=== PATIENT | female | born 1955 | race Caucasian/White ===

== ENCOUNTER → 2017-12-13 11:41 | Outpatient (CLI) | payer OTHER, MEDICAID, SELFPAY ==
--- NOTE | 2017-12-13 11:42 | DI.US.S_ITS ---
PROCEDURE: US ABDOMEN COMPLETE INDICATIONS: ELEVATED LIVER ENZYMES TECHNIQUE: Real-time scanning was performed of the abdominal and retroperitoneal organs, with image documentation. COMPARISON: None. FINDINGS: Liver: Liver is normal in size and homogeneous in echotexture, mildly hyperechoic consistent with mild fatty infiltration. Gallbladder: Multiple dependent layering stones are present within the gallbladder lumen without evidence of acute cholecystitis or biliary obstruction. Biliary ducts: Intrahepatic bile ducts are non-dilated. Extrahepatic bile duct caliber measures 2.0 mm. Normal is 6-7 mm or less in diameter, or 10 mm or less post-cholecystectomy. Pancreas: Visualized portions of the pancreas are sonographically normal but significant portions of the pancreas were poorly seen due to bowel gas. Spleen: Spleen is normal in size and homogeneous in echotexture. Kidneys: Kidneys are normal in size and echotexture. Right kidney measures 10.9 cm long; left kidney measures 11.4 cm long. No hydronephrosis or nephrolithiasis. No solid masses. Aorta: Visualized aorta is normal in caliber at less than 3 cm. Iliacs: Not seen due to bowel gas IVC: Intrahepatic inferior vena cava is patent. Miscellaneous: No free abdominal fluid. IMPRESSION: Mild fatty infiltration throughout the liver. Dependent layering gallstones are present within the gallbladder lumen but without evidence of associated acute cholecystitis or biliary distention. Portions of the retroperitoneum were poorly seen due to overlying bowel gas. This included a significant portion of the pancreas, the distal aorta, and the iliac vessels within the pelvis. No ascites is found. Dictated by: Reagan Dumont M.D. on 12/13/2017 at 13:36 Approved by: Reagan Dumont M.D. on 12/13/2017 at 13:38
[2017-12-13 13:27] LABS: Add Manual Diff / Slide Review NO; Basophils Percent Auto 0.5 % (0-2); Eosinophils Percent Auto 4.5 % (2-4); Hemoglobin 13.7 g/dL (12.0-16.0); Lymphocytes Percent Auto 35.5 % (25-40); Mean Corpuscular HGB Conc 33.4 % (30-36); Mean Corpuscular Hemoglobin 30.9 PG (26-34); Mean Corpuscular Volume 92.5 fL (80-100); Monocytes Percent Auto 5.1 % (3-14); Neutrophils Absolute Auto 5500 /uL (3000-5900); Neutrophils Percent Auto 54.4 % (50-75); Platelet Count 215 X10^3/uL (150-400); Red Blood Cell Count 4.43 X10^6/uL (4.0-5.2); Red Cell Distribution Width 12.4 % (11.6-14.8); White Blood Cell Count 10.1 X10^3/uL (4.5-11.0)
[2017-12-13 13:35] LABS: Hemoglobin A1C% w Est Avg Glu 11.2 % (4.0-6.0)
[2017-12-13 14:00] LABS: Alanine Aminotransferase 79 IU/L (9-52); Albumin 4.2 g/dL (3.5-5.0); Albumin Globulin Ratio 1.2 (1.0-2.8); Alkaline Phosphatase 169 U/L (38-126); Aspartate Aminotransferase 59 IU/L (14-36); Blood Urea Nitrogen 19 mg/dL (7-17); Calcium 9.1 mg/dL (8.4-10.2); Carbon Dioxide 36 mmol/L (22-32); Chloride 98 mmol/L (98-107); Cholesterol 147 mg/dL (140-199); Estimated Glomerular Filt Rate > 60.0 mL/min (>60); Globulin 3.4 g/dL (1.7-4.1); Glucose 218 mg/dL (80-110); HDL Cholesterol 77 mg/dL (40-60); HEMOLYSIS < 15 (0-50); LDL Cholesterol Calculated 53 mg/dL (<100); Potassium 4.1 mmol/L (3.4-5.1); Sodium 140 mmol/L (137-145); Total Protein 7.6 g/dL (6.3-8.2); Triglycerides 86 mg/dL (35-150)
[2017-12-13 19:33] LABS: TSH w/ Reflex to FT4 3.38 uIU/mL (0.47-4.68)
[2017-12-15 16:05] LABS: Hepatitis A Antibody IgM NONREACTIVE; Hepatitis Acute Panel Interp 0.01; Hepatitis B Core Antibody IgM NONREACTIVE; Hepatitis B Surface Antigen NONREACTIVE; Hepatitis C Antibody NONREACTIVE
== END ==
PROVIDERS: PCP Family Medicine; Visit Provider Family Medicine
DX: R74.8 Abnormal levels of other serum enzymes (principal); R74.0 Nonspecific elevation of levels of transaminase and lactic acid dehydrogenase [LDH]; K80.80 Other cholelithiasis without obstruction; E11.9 Type 2 diabetes mellitus without complications; F10.21 Alcohol dependence, in remission; Z79.4 Long term (current) use of insulin
CPT/HCPCS: 36415; 76700; 80053; 80061; 80074; 83036; 84443; 85025

== ENCOUNTER → 2018-03-16 11:00 | Outpatient (CLI) | payer OTHER, MEDICAID, SELFPAY ==
--- NOTE | 2018-03-16 15:10 | DIET.PN ---
DIABETES Nutrition Initial Assessment:? ASSESS:???62 yof? referred for type 2 diabetes. Pt reports 5 yr history of diagnosis with strong family history. States she was in denial of diagnosis for several years until she began experiencing the complications associated with the disease including neuropathy, vision changes, extreme thirst and fatigue. Pt admits she does not take care of herself. Does not follow any dietary guidelines or restrictions. She has a glucometer but does not monitor her blood glucose. Pt is on diabetes medication but does not take them as prescribed often going without insulin for several days. Upon assessment she began to tear up describing an overwhelming feeling with coming in today and admits she almost stayed home in bed. Pt provided some dietary history, but explained she likes to drink alcohol and does not plan to discontinue. Usually consumes four lokos her brings home to her after work. Pt with poor dentition. States she had an upper denture that she believes her dog chewed up which makes chewing very difficult and limits many food, particularly protein, options. ? LABS: Per pt report:? a1c: 11.2 (does not currently monitor home blood glucose PMHX: fatty liver disease; alcoholism ? MEDS:?? metformin 1000mg BID (only takes at night with other meds) ; lantus 70u BID (only takes when her feet start to hurt) ? Weight: 185lb Ht:?67in BMI: 29 (OW) Goal weight: 150 lb ? Exercise:? none NUTRITION DX ? (1) Altered Nutrition related labs related to impaired glucose metabolism, lack of previous exposure to accurate nutrition information as evidenced by pt report, dx of diabetes, previous diet high in refined carbohydrates.? INTERVENTION(s): 1. Discussed pathophysiology of diabetes. Reviewed A1c and its correlation to blood glucose numbers. Discussed recommended BG ranges. 2. Discussed importance of self-monitoring, how often, and when to check. Recommended pt check FBG and 2hr PP to assess glucose patterns. 3. Reviewed hyper/hypoglycemia and treatment. 4. Discussed impact of nutrition/diet on blood sugar control.? Discussed fed versus non-fed state.?? 5. Discussed the effect of carbohydrates/protein/fat on blood sugar control.? Stressed importance of consistent carbohydrate intake at each meal and provided instructions for recommended servings/portions of carbohydrates/protein per meal. Provided pt with educational material. 6. Reviewed carbohydrate counting and measuring carbohydrate content via servings sizes and reading nutrition labels.? Provided handouts.?? 7. Stressed importance of meal timing and not going >4-5 hours between meals. Encouraged adding protein to evening snack to support glucose control overnight. Patient agreeable. 8. Discussed healthy weight loss goals of 1-2lbs per week through diet and exercise.? Will further discuss physical activity recommendations at follow up appt. 9. Discussed in great detail importance of limiting or cutting out alcohol to reduce further liver complications. 9. Created SMART goals for pt self-care and success. SMART Goals: 1. Pt agreed to 5-7 lb weight loss each month until goal weight is met through diet and exercise. 2. Pt A1c goal in the next 3 mo is 9.5 with an overall goal of 8.0. 3. Pt will cut out four lokos completely as these are very high in sugar (60g), up to 14% alcohol, and contain 160mg of caffeine. Discussed safer options including 1- 4oz glass of wine or 1.5oz hard liquor beverage as a replacement which much be consumed with food. Pt agreeable. 4. Pt with monitor FBG and 2 hr PP at each meal until pattern management is accomplished. Will move to 2x/day thereafter. 5. Pt agrees to take medications as prescribed to obtain better glucose control. She will do this by setting an alarm/reminder to ensure meds are taken on time. MONITOR/EVALUATE: Anticipate good compliance. Pt request first follow up at 2 weeks and monthly thereafter for accountability until goals are met. Nutrition follow-up scheduled for 2 weeks to monitor food record, blood glucose log, weight, and to discuss other nutritional concerns in detail. Will follow up with authorized referral visits at this time.
== END ==
PROVIDERS: PCP Family Medicine; Visit Provider Family Medicine
DX: E11.9 Type 2 diabetes mellitus without complications (principal)
CPT/HCPCS: 97802

== ENCOUNTER 2018-07-09 15:51 | Emergency (ER) | payer OTHER, MEDICAID, SELFPAY ==
[2018-07-09 16:20] VITALS: BP 145/85; PULSE 93; RESP 18; TEMP 36.9; O2SAT 96; BMI 29.7
--- NOTE | 2018-07-09 16:56 | DI.US.S_ITS ---
PROCEDURE: US PERIPH VENOUS LOW EXTREM RT INDICATIONS: EDEMA TECHNIQUE: Real-time imaging, as well as color and pulse Doppler interrogation, were performed of the lower extremity deep veins from the inguinal ligament to the popliteal fossa. COMPARISON: [facility], US, US ABDOMEN COMPLETE, 12/13/2017, 12:07. FINDINGS: The common femoral, femoral and popliteal veins are normally compressible, and free of intraluminal thrombus. Color and pulse Doppler demonstrate normal phasic intraluminal flow. There is normal augmentation response to distal compression maneuver. IMPRESSION: Negative for deep venous thrombosis. Dictated by: Trino Seals M.D. on 07/09/2018 at 16:30 Approved by: Trino Seals M.D. on 07/09/2018 at 16:31
[2018-07-09] MEDS: KETOROLAC 60 MG/2 ML VIAL IM (17:51)
[2018-07-09 18:21] VITALS: BP 156/90; PULSE 88; RESP 17; O2SAT 98
--- NOTE | 2018-07-09 18:29 | ED.EXTPRO ---
HPI - Extremity Problem <RODRICK Hines - Last Filed: 07/09/18 18:33> General Chief complaint: Extremity Problem,Nontraumatic Stated complaint: Right leg, states vein has popped Time Seen by Provider: 07/09/18 17:20 Source: patient Mode of arrival: ambulatory Limitations: no limitations History of Present Illness HPI Narrative: The patient is a 62-year-old female with history of diabetes was a nonsmoker presents with chief complaint of right leg pain. She is concerned about a blood clot. She noticed this a few days ago. She denies any chest pain, shortness of breath fevers nausea vomiting or diarrhea. She does have a history of high blood pressure and hypertension, so she is aware she has increased risk factors launch. She denies any previous clotting disorders stroke or TIA. Related Data Home Medications Medication Instructions Recorded Confirmed aspirin #0 02/03/16 01/17/18 Previous Rx's Medication Instructions Recorded triamcinolone acetonide 1 sherwin TOPICAL BID #1 tube 10/06/16 gabapentin 100 mg capsule 100 mg PO TID #90 cap 07/12/17 atorvastatin 20 mg tablet 20 mg PO HS #90 tab 01/03/18 fluoxetine 20 mg capsule 80 mg PO QDAY #120 cap 01/03/18 lisinopril 20 mg tablet 20 mg PO QDAY #90 tab 01/03/18 metformin 1,000 mg tablet 1,000 mg PO BID #60 tab 01/03/18 insulin glargine (U-100) 100 70 unit SUBCUT DAILY #30 ml 03/22/18 unit/mL (3 mL) subcutaneous pen pen needle, diabetic 31 gauge x #90 each 05/18/1805/14 Allergies Allergy/AdvReac Type Severity Reaction Status Date / Time No Known Drug Allergies Allergy Verified 07/09/18 16:19 Review of Systems <RODRICK Hines - Last Filed: 07/09/18 18:33> Review of Systems GENERAL: Denies chills, fatigue, malaise, fever, sweats. HEENT: Denies sinus pain, ear pain, sore throat, difficulty swallowing, dizziness. RESPIRATORY: Denies dyspnea, cough, wheezing, hemoptysis, sputum. CARDIOVASCULAR: Denies chest pain, palpitations, orthopnea, edema, GASTROINTESTINAL: Denies nausea, vomiting, abdominal pain, diarrhea, constipation, melena. : Denies dysuria, frequency, incontinence, hematuria, urinary retention. MUSCULOSKELETAL: See HPI SKIN: Denies rash, skin lesions, or other NEUROLOGIC: Denies weakness, headache, numbness, change in speech, confusion, seizures, incoordination. PSYCHIATRIC: No concerning psychosocial issues. 12 point review of systems is negative except for those stated above PFSH <RODRICK Hines - Last Filed: 07/09/18 18:33> Medical History Arm pain (Chronic) Depression (Chronic ~2004) Diabetes mellitus (Chronic ~2012) Eczema (Chronic ~2013) Foot pain (Chronic ~2013) Glaucoma (Chronic ~2012) Gout (Chronic ~1987) Kidney disease (Chronic ~2013) Liver disease (Chronic ~2013) Shoulder pain (Chronic ~2015) Skin problem (Chronic ~2013) Vision disorder (Chronic) Family History (Updated 01/01/18 @ 21:25 by Mony Szymanski) Father Cancer Mother Age: 88 Hypertension High cholesterol Diabetes mellitus Grandfather No problems noted. Social History Smoking Status: Never smoker Family History Father Cancer Mother Age: 88 Hypertension High cholesterol Diabetes mellitus Grandfather No problems noted. Social History Smoking Status: Never smoker Exam <RODRICK Hines - Last Filed: 07/09/18 18:33> Narrative Exam Narrative: GENERAL: This is a well-nourished, well-developed patient, in no acute distress HEAD: Atraumatic. Normocephalic. No temporal or scalp tenderness. EYES: Pupils equal round and reactive. Extraocular motions intact. No scleral icterus. No injection or drainage. NECK: Trachea midline. No JVD or lymphadenopathy. Supple, nontender, no meningeal signs. CARDIOVASCULAR: Regular rate and rhythm. RESPIRATORY: Clear to auscultation. Breath sounds equal bilaterally. No wheezes, rales, or rhonchi. No cough. No increased respiratory effort. GASTROINTESTINAL: Abdomen soft, non-tender, nondistended. No hepato-splenomegaly, or palpable masses. No guarding. EXTREMITIES: General pain to palpation right lower leg. Soft to palpation. Positive pedal pulses. No pedal edema noted bilaterally. BACK: Nontender without deformity or crepitance. No flank tenderness. NEURO: AOx3. SKIN: No erythema ecchymosis abnormality noted right leg.. Initial Vital Signs Initial Vital Signs: Vital Signs Temperature 98.4 F 07/09/18 16:20 Pulse Rate 93 H 07/09/18 16:20 Respiratory Rate 18 07/09/18 16:20 Blood Pressure 145/85 H 07/09/18 16:20 Pulse Oximetry 96 07/09/18 16:20 <Magaly Doe DO - Last Filed: 07/09/18 19:11> Initial Vital Signs Initial Vital Signs: Vital Signs Temperature 98.4 F 07/09/18 16:20 Pulse Rate 93 H 07/09/18 16:20 Respiratory Rate 18 07/09/18 16:20 Blood Pressure 145/85 H 07/09/18 16:20 Pulse Oximetry 96 07/09/18 16:20 Course <RODRICK Hines - Last Filed: 07/09/18 18:33> Orders Ordered: ED Orders 07/09/18 16:56 US periph venous low extrem rt Stat Discontinued Medications Ketorolac Tromethamine (Toradol) 60 mg IM NOW ONE Stop: 07/09/18 17:24 Last Admin: 07/09/18 17:51 Dose: 60 mg Vital Signs - 8 hr 07/09/18 16:20 07/09/18 18:21 Temperature 98.4 F Pulse Rate 93 H 88 Respiratory Rate 18 17 Blood Pressure 145/85 H Blood Pressure [Left Arm] 156/90 H Pulse Oximetry 96 98 <Magaly Doe DO - Last Filed: 07/09/18 19:11> Orders Ordered: ED Orders 07/09/18 16:56 US periph venous low extrem rt Stat Discontinued Medications Ketorolac Tromethamine (Toradol) 60 mg IM NOW ONE Stop: 07/09/18 17:24 Last Admin: 07/09/18 17:51 Dose: 60 mg Vital Signs - 8 hr 07/09/18 16:20 07/09/18 18:21 Temperature 98.4 F Pulse Rate 93 H 88 Respiratory Rate 18 17 Blood Pressure 145/85 H Blood Pressure [Left Arm] 156/90 H Pulse Oximetry 96 98 [facility] - Extremity (Nontraumatic) <Magaly Montaño [employer] - Last Filed: 07/09/18 18:33> Imaging Data Venous US: Radiologist's impression: GENERAL: This is a well-nourished, well-developed patient, in mild distress. HEAD: Atraumatic. Normocephalic. No temporal or scalp tenderness. EYES: Pupils equal round and reactive. Extraocular motions intact. No scleral icterus. No injection or drainage. ENT: Nose without bleeding, purulent drainage or septal hematoma. Throat without erythema, tonsillar hypertrophy or exudate. Uvula midline. Airway patent. NECK: Trachea midline. No JVD or lymphadenopathy. Supple, nontender, no meningeal signs. CARDIOVASCULAR: Regular rate and rhythm without murmurs, gallops, or rubs. RESPIRATORY: Clear to auscultation. Breath sounds equal bilaterally. No wheezes, rales, or rhonchi. GASTROINTESTINAL: Abdomen soft, non-tender, nondistended. No hepato-splenomegaly, or palpable masses. No guarding. EXTREMITIES: No clubbing, cyanosis, or edema. No joint tenderness, effusion, or edema noted. BACK: Nontender without deformity or crepitance. No flank tenderness. NEURO: AOx3. SKIN: No rash or erythema. [facility] Narrative Medical decision making narrative: The patient is a 62-year-old female presents with acute right leg pain. She is concerned about a blood clot. She has a negative ultrasound for DVT. She was given Toradol emergency department. I discussed at length conservative measures including rest ice compression elevation as well as [id number] pain medications as needed and able. Discussed not taking any anti-inflammatories for 6-8 hours after Toradol injection. Patient has no questions or concerns upon discharge. Discussed return precautions of chest pain shortness of breath, concern for clot, etc Discharge Plan Departure Patient Disposition: Home Clinical Impression: Leg pain, right Discharge Date/Time: 07/09/18 18:39 Interventions: ED Discharge Assessment Last Done: 07/09/18 18:38 Instructions: DI for Leg Pain Activity Restrictions/Additional Instructions: Your ultrasound came back negative for clot. Please use [id number] medications as needed and able. Please do not take any anti-inflammatory such as ibuprofen or Aleve for 6-8 hours after her pain injection. Please follow up with primary care provider. Come back to the emergency department for any acute concerns such as chest pain shortness of breath or concern of blood clot. Prescriptions: No Action aspirin 81 MG tablet,delayed release (DR/EC) Qty: 0 RF: 0 triamcinolone acetonide 0.025 % cream 1 sherwin Topical BID Qty: 1 RF: 0 gabapentin 100 mg capsule 100 mg PO TID Qty: 90 RF: 1 insulin glargine 100 unit/mL (3 mL) insulin pen 70 unit SUBCUT DAILY Qty: 30 RF: 5 pen needle, diabetic [Lite Touch Insulin Pen [place]] 31 gauge x 3/16 needle .ROUTE .MEDSUPPLY Qty: 90 RF: 3 lisinopril 20 mg tablet 20 mg PO QDAY Qty: 90 RF: 2 metformin 1,000 mg tablet 1,000 mg PO BID Qty: 60 RF: 2 atorvastatin [Lipitor] 20 mg tablet 20 mg PO HS Qty: 90 RF: 1 fluoxetine 20 mg capsule 80 mg PO QDAY Qty: 120 RF: 2 Referrals: Sarah Etienne MD [Primary Care Provider] - <Magaly Doe DO - Last Filed: 07/09/18 19:11> Cosign ED Attending Cosignature Attestation: I was immediately available in the department for consultation. This documentation has been reviewed and I agree with assessment and plan. Supervised by Magaly Doe DO
--- NOTE | 2018-07-09 18:34 | ED_ITS ---
HPI - Extremity Problem <RODRICK Hines - Last Filed: 07/09/18 18:33> General Chief complaint: Extremity Problem,Nontraumatic Stated complaint: Right leg, states vein has popped Time Seen by Provider: 07/09/18 17:20 Source: patient Mode of arrival: ambulatory Limitations: no limitations History of Present Illness HPI Narrative: The patient is a 62-year-old female with history of diabetes was a nonsmoker presents with chief complaint of right leg pain. She is concerned about a blood clot. She noticed this a few days ago. She denies any chest pain, shortness of breath fevers nausea vomiting or diarrhea. She does have a history of high blood pressure and hypertension, so she is aware she has increased risk factors launch. She denies any previous clotting disorders stroke or TIA. Related Data Home Medications Medication Instructions Recorded Confirmed aspirin #0 02/03/16 01/17/18 Previous Rx's Medication Instructions Recorded triamcinolone acetonide 1 sherwin TOPICAL BID #1 tube 10/06/16 gabapentin 100 mg capsule 100 mg PO TID #90 cap 07/12/17 atorvastatin 20 mg tablet 20 mg PO HS #90 tab 01/03/18 fluoxetine 20 mg capsule 80 mg PO QDAY #120 cap 01/03/18 lisinopril 20 mg tablet 20 mg PO QDAY #90 tab 01/03/18 metformin 1,000 mg tablet 1,000 mg PO BID #60 tab 01/03/18 insulin glargine (U-100) 100 70 unit SUBCUT DAILY #30 ml 03/22/18 unit/mL (3 mL) subcutaneous pen pen needle, diabetic 31 gauge x #90 each 05/18/1805/14 Allergies Allergy/AdvReac Type Severity Reaction Status Date / Time No Known Drug Allergies Allergy Verified 07/09/18 16:19 Review of Systems <RODRICK Hines - Last Filed: 07/09/18 18:33> Review of Systems GENERAL: Denies chills, fatigue, malaise, fever, sweats. HEENT: Denies sinus pain, ear pain, sore throat, difficulty swallowing, dizziness. RESPIRATORY: Denies dyspnea, cough, wheezing, hemoptysis, sputum. CARDIOVASCULAR: Denies chest pain, palpitations, orthopnea, edema, GASTROINTESTINAL: Denies nausea, vomiting, abdominal pain, diarrhea, constipation, melena. : Denies dysuria, frequency, incontinence, hematuria, urinary retention. MUSCULOSKELETAL: See HPI SKIN: Denies rash, skin lesions, or other NEUROLOGIC: Denies weakness, headache, numbness, change in speech, confusion, seizures, incoordination. PSYCHIATRIC: No concerning psychosocial issues. 12 point review of systems is negative except for those stated above PFSH <RODRICK Hines - Last Filed: 07/09/18 18:33> Medical History Arm pain (Chronic) Depression (Chronic ~2004) Diabetes mellitus (Chronic ~2012) Eczema (Chronic ~2013) Foot pain (Chronic ~2013) Glaucoma (Chronic ~2012) Gout (Chronic ~1987) Kidney disease (Chronic ~2013) Liver disease (Chronic ~2013) Shoulder pain (Chronic ~2015) Skin problem (Chronic ~2013) Vision disorder (Chronic) Family History (Updated 01/01/18 @ 21:25 by Mony Szymanski) Father Cancer Mother Age: 88 Hypertension High cholesterol Diabetes mellitus Grandfather No problems noted. Social History Smoking Status: Never smoker Family History Father Cancer Mother Age: 88 Hypertension High cholesterol Diabetes mellitus Grandfather No problems noted. Social History Smoking Status: Never smoker Exam <RODRICK Hines - Last Filed: 07/09/18 18:33> Narrative Exam Narrative: GENERAL: This is a well-nourished, well-developed patient, in no acute distress HEAD: Atraumatic. Normocephalic. No temporal or scalp tenderness. EYES: Pupils equal round and reactive. Extraocular motions intact. No scleral icterus. No injection or drainage. NECK: Trachea midline. No JVD or lymphadenopathy. Supple, nontender, no meningeal signs. CARDIOVASCULAR: Regular rate and rhythm. RESPIRATORY: Clear to auscultation. Breath sounds equal bilaterally. No wheezes, rales, or rhonchi. No cough. No increased respiratory effort. GASTROINTESTINAL: Abdomen soft, non-tender, nondistended. No hepato- splenomegaly, or palpable masses. No guarding. EXTREMITIES: General pain to palpation right lower leg. Soft to palpation. Positive pedal pulses. No pedal edema noted bilaterally. BACK: Nontender without deformity or crepitance. No flank tenderness. NEURO: AOx3. SKIN: No erythema ecchymosis abnormality noted right leg.. Initial Vital Signs Initial Vital Signs: Vital Signs Temperature 98.4 F 07/09/18 16:20 Pulse Rate 93 H 07/09/18 16:20 Respiratory Rate 18 07/09/18 16:20 Blood Pressure 145/85 H 07/09/18 16:20 Pulse Oximetry 96 07/09/18 16:20 <Magaly Doe DO - Last Filed: 07/09/18 19:11> Initial Vital Signs Initial Vital Signs: Vital Signs Temperature 98.4 F 07/09/18 16:20 Pulse Rate 93 H 07/09/18 16:20 Respiratory Rate 18 07/09/18 16:20 Blood Pressure 145/85 H 07/09/18 16:20 Pulse Oximetry 96 07/09/18 16:20 Course <RODRICK Hines - Last Filed: 07/09/18 18:33> Orders Ordered: ED Orders 07/09/18 16:56 US periph venous low extrem rt Stat Discontinued Medications Ketorolac Tromethamine (Toradol) 60 mg IM NOW ONE Stop: 07/09/18 17:24 Last Admin: 07/09/18 17:51 Dose: 60 mg Vital Signs - 8 hr 07/09/18 16:20 07/09/18 18:21 Temperature 98.4 F Pulse Rate 93 H 88 Respiratory Rate 18 17 Blood Pressure 145/85 H Blood Pressure [Left Arm] 156/90 H Pulse Oximetry 96 98 <Magaly Doe DO - Last Filed: 07/09/18 19:11> Orders Ordered: ED Orders 07/09/18 16:56 US periph venous low extrem rt Stat Discontinued Medications Ketorolac Tromethamine (Toradol) 60 mg IM NOW ONE Stop: 07/09/18 17:24 Last Admin: 07/09/18 17:51 Dose: 60 mg Vital Signs - 8 hr 07/09/18 16:20 07/09/18 18:21 Temperature 98.4 F Pulse Rate 93 H 88 Respiratory Rate 18 17 Blood Pressure 145/85 H Blood Pressure [Left Arm] 156/90 H Pulse Oximetry 96 98 [facility] - Extremity (Nontraumatic) <Magaly Montaño STATISTICAL PROGRAMMER ANALYST-BC - Last Filed: 07/09/18 18:33> Imaging Data Venous US: Radiologist's impression: GENERAL: This is a well-nourished, well- developed patient, in mild distress. HEAD: Atraumatic. Normocephalic. No temporal or scalp tenderness. EYES: Pupils equal round and reactive. Extraocular motions intact. No scleral icterus. No injection or drainage. ENT: Nose without bleeding, purulent drainage or septal hematoma. Throat without erythema, tonsillar hypertrophy or exudate. Uvula midline. Airway patent. NECK: Trachea midline. No JVD or lymphadenopathy. Supple, nontender, no meningeal signs. CARDIOVASCULAR: Regular rate and rhythm without murmurs, gallops, or rubs. RESPIRATORY: Clear to auscultation. Breath sounds equal bilaterally. No wheezes, rales, or rhonchi. GASTROINTESTINAL: Abdomen soft, non-tender, nondistended. No hepato- splenomegaly, or palpable masses. No guarding. EXTREMITIES: No clubbing, cyanosis, or edema. No joint tenderness, effusion, or edema noted. BACK: Nontender without deformity or crepitance. No flank tenderness. NEURO: AOx3. SKIN: No rash or erythema. [facility] Narrative Medical decision making narrative: The patient is a 62-year-old female presents with acute right leg pain. She is concerned about a blood clot. She has a negative ultrasound for DVT. She was given Toradol emergency department. I discussed at length conservative measures including rest ice compression elevation as well as [id number] pain medications as needed and able. Discussed not taking any anti-inflammatories for 6-8 hours after Toradol injection. Patient has no questions or concerns upon discharge. Discussed return precautions of chest pain shortness of breath, concern for clot, etc Discharge Plan Departure Patient Disposition: Home Clinical Impression: Leg pain, right Discharge Date/Time: 07/09/18 18:39 Interventions: ED Discharge Assessment Last Done: 07/09/18 18:38 Instructions: DI for Leg Pain Activity Restrictions/Additional Instructions: Your ultrasound came back negative for clot. Please use [id number] medications as needed and able. Please do not take any anti-inflammatory such as ibuprofen or Aleve for 6-8 hours after her pain injection. Please follow up with primary care provider. Come back to the emergency department for any acute concerns such as chest pain shortness of breath or concern of blood clot. Prescriptions: No Action aspirin 81 MG tablet,delayed release (DR/EC) Qty: 0 RF: 0 triamcinolone acetonide 0.025 % cream 1 sherwin Topical BID Qty: 1 RF: 0 gabapentin 100 mg capsule 100 mg PO TID Qty: 90 RF: 1 insulin glargine 100 unit/mL (3 mL) insulin pen 70 unit SUBCUT DAILY Qty: 30 RF: 5 pen needle, diabetic [Lite Touch Insulin Pen [place]] 31 gauge x 3/16 needle .ROUTE .MEDSUPPLY Qty: 90 RF: 3 lisinopril 20 mg tablet 20 mg PO QDAY Qty: 90 RF: 2 metformin 1,000 mg tablet 1,000 mg PO BID Qty: 60 RF: 2 atorvastatin [Lipitor] 20 mg tablet 20 mg PO HS Qty: 90 RF: 1 fluoxetine 20 mg capsule 80 mg PO QDAY Qty: 120 RF: 2 Referrals: Sarah Etienne MD [Primary Care Provider] - <Magaly Doe DO - Last Filed: 07/09/18 19:11> Cosign ED Attending Cosignature Attestation: I was immediately available in the department for consultation. This documentation has been reviewed and I agree with assessment and plan. Supervised by Magaly Doe DO
== END 2018-07-09 18:39 | disposition home or self-care (01) ==
PROVIDERS: Emergency Provider Nurse Practitioner Family; PCP Family Medicine
DX: M79.604 Pain in right leg (principal); E11.8 Type 2 diabetes mellitus with unspecified complications
CPT/HCPCS: 93971; 96372; 99282; 99283; J1885

== ENCOUNTER → 2018-11-18 12:59 | Outpatient (CLI) | payer OTHER, MEDICAID, SELFPAY ==
--- NOTE | 2018-11-18 | DI.MG.S_ITS ---
BILATERAL DIGITAL SCREENING MAMMOGRAM 3D/2D WITH CAD: 11/18/2018 CLINICAL: Routine screening. Comparison is made to exam dated: 07/17/2008 mammogram - [facility]. There are scattered fibroglandular elements in both breasts. Current study was also evaluated with a Computer Aided Detection (CAD) system. No significant masses, calcifications, or other findings are seen in either breast. There has been no significant interval change. IMPRESSION: NEGATIVE There is no mammographic evidence of malignancy. A 1 year screening mammogram is recommended. This exam was interpreted at Station ID: [id number]. NOTE: For mammograms, a report in lay terms will be sent to the patient. Approximately 15% of breast malignancies will not be visualized mammographically. In the management of a palpable breast mass, a negative mammogram must not discourage biopsy of a clinically suspicious lesion. Electronically Signed By: Tamara edwards/arabella:11/18/2018 14:07:47 letter sent: Normal Exam ACR BI-RADS Category 1: Negative 3341F
== END ==
PROVIDERS: PCP Family Medicine; Visit Provider Family Medicine
DX: Z12.31 Encounter for screening mammogram for malignant neoplasm of breast (principal)
CPT/HCPCS: 77063; 77067

== ENCOUNTER → 2018-11-18 14:00 | Outpatient (CLI) | payer OTHER, MEDICAID, SELFPAY ==
[2018-11-18 14:24] LABS: Add Manual Diff / Slide Review NO; Basophils Absolute Auto 100 /uL (0-100); Basophils Percent Auto 0.6 % (0-2); Eosinophils Absolute Auto 200 /uL (0-450); Eosinophils Percent Auto 1.6 % (2-4); Hematocrit 40.4 % (36-46); Hemoglobin 13.8 g/dL (12.0-16.0); Lymphocytes Absolute Auto 3600 /uL (1100-4500); Lymphocytes Percent Auto 31.7 % (25-40); Mean Corpuscular HGB Conc 34.1 % (30-36); Mean Corpuscular Hemoglobin 31.4 PG (26-34); Mean Corpuscular Volume 91.9 fL (80-100); Monocytes Absolute Auto 700 /uL (0-900); Monocytes Percent Auto 5.7 % (3-14); Neutrophils Absolute Auto 6900 /uL (1500-7000); Neutrophils Percent Auto 60.4 % (50-75); Platelet Count 270 X10^3/uL (150-400); Red Blood Cell Count 4.39 X10^6/uL (4.0-5.2); Red Cell Distribution Width 13.1 % (11.6-14.8); White Blood Cell Count 11.5 X10^3/uL (4.5-11.0)
[2018-11-18 14:39] LABS: Hemoglobin A1C% w Est Avg Glu 7.9 % (4.0-6.0)
[2018-11-18 14:46] LABS: Alanine Aminotransferase 46 IU/L (9-52); Albumin 4.2 g/dL (3.5-5.0); Albumin Globulin Ratio 1.3 (1.0-2.8); Alkaline Phosphatase 138 U/L (38-126); Aspartate Aminotransferase 44 IU/L (14-36); BUN Creatinine Ratio 26.7 (6-22); Bilirubin Total 0.7 mg/dL (0.2-1.3); Blood Urea Nitrogen 16 mg/dL (7-17); Calcium 9.5 mg/dL (8.4-10.2); Carbon Dioxide 31 mmol/L (22-32); Chloride 101 mmol/L (98-107); Estimated Glomerular Filt Rate > 60.0 mL/min (>60); Globulin 3.3 g/dL (1.7-4.1); Glucose 77 mg/dL (80-110); HEMOLYSIS < 15 (0-50); Potassium 3.8 mmol/L (3.4-5.1); Sodium 141 mmol/L (137-145); Total Protein 7.5 g/dL (6.3-8.2)
[2018-11-18 15:15] LABS: Creatinine Urine Random 256.5 mg/dL
[2018-11-18 15:21] LABS: Microalbumi Creatinin Ratio Ur 10.5 ug/mg CR (<30); Microalbumin Urine Random 2.7 mg/dL (0-1.6)
== END ==
PROVIDERS: PCP Family Medicine; Visit Provider Family Medicine
DX: E11.42 Type 2 diabetes mellitus with diabetic polyneuropathy (principal); I10 Essential (primary) hypertension; K76.0 Fatty (change of) liver, not elsewhere classified; R74.0 Nonspecific elevation of levels of transaminase and lactic acid dehydrogenase [LDH]
CPT/HCPCS: 36415; 80053; 82043; 82570; 83036; 85025

== ENCOUNTER → 2019-03-17 08:33 | Outpatient (CLI) | payer OTHER, MEDICAID, SELFPAY ==
[2019-03-17 10:07] LABS: Hemoglobin A1C% w Est Avg Glu 9.1 % (4.0-6.0)
== END ==
PROVIDERS: PCP Family Medicine; Visit Provider Family Medicine
DX: E11.9 Type 2 diabetes mellitus without complications (principal)
CPT/HCPCS: 36415; 83036

== ENCOUNTER → 2019-11-21 11:25 | Outpatient (CLI) | payer OTHER, MEDICAID, SELFPAY ==
[2019-11-21 12:28] LABS: Hemoglobin A1C% w Est Avg Glu 9.4 % (4.0-6.0)
[2019-11-21 12:35] LABS: Alanine Aminotransferase 127 IU/L (<35); Albumin 4.1 g/dL (3.5-5.0); Albumin Globulin Ratio 1.2 (1.0-2.8); Alkaline Phosphatase 252 U/L (38-126); Aspartate Aminotransferase 89 IU/L (14-36); BUN Creatinine Ratio 27.8 (6-22); Blood Urea Nitrogen 15 mg/dL (7-17); Calcium 9.5 mg/dL (8.4-10.2); Carbon Dioxide 29 mmol/L (22-32); Chloride 99 mmol/L (98-107); Cholesterol 171 mg/dL (140-199); Estimated Glomerular Filt Rate > 60.0 mL/min (>60); Globulin 3.4 g/dL (1.7-4.1); Glucose 183 mg/dL (80-110); HDL Cholesterol 100 mg/dL (40-60); HEMOLYSIS < 15 (0-50); LDL Cholesterol Calculated 50 mg/dL (<100); Potassium 4.3 mmol/L (3.4-5.1); Sodium 139 mmol/L (137-145); Total Protein 7.5 g/dL (6.3-8.2); Triglycerides 106 mg/dL (35-150)
[2019-11-21 16:03] LABS: Creatinine Urine Random 62.4 mg/dL
== END ==
PROVIDERS: PCP Family Medicine; Referring Provider Family Medicine; Visit Provider Family Medicine
DX: E11.9 Type 2 diabetes mellitus without complications (principal)
CPT/HCPCS: 36415; 80053; 80061; 82043; 82570; 83036

== ENCOUNTER → 2019-12-05 15:01 | Outpatient (CLI) | payer OTHER, MEDICAID, SELFPAY ==
--- NOTE | 2019-12-05 15:06 | DI.US.S_ITS ---
PROCEDURE: US ABDOMEN LIMITED INDICATIONS: ELEVATED LIVER ENZYMES TECHNIQUE: Real-time focused scanning was performed of the abdomen, with image documentation. COMPARISON: None. FINDINGS: The liver is normal in size and demonstrates no focal lesions. Generalized increased liver echogenicity is seen. Several gallstones are seen. There is a nonmobile 1.4 cm stone seen within the region of the neck of the gallbladder. The gallbladder wall is not thickened, measuring 3 mm or less. No specific pericholecystic fluid is seen. The sonographic Ruiz sign is negative. There is no biliary dilatation, the common bile duct measures 6 mm. The visualized pancreas is unremarkable. IMPRESSION: Gallstones are seen, yet without additional sonographic signs of cholecystitis. Negative for biliary dilatation. Please correlate with physical examination findings, patient presentation, and laboratory values. The liver demonstrates increased echogenicity. This finding is nonspecific, yet it is most commonly attributed to fatty infiltration. Dictated by: Trino Seals M.D. on 12/05/2019 at 16:12 Approved by: Trino Seals M.D. on 12/05/2019 at 16:14
== END ==
PROVIDERS: PCP Family Medicine; Referring Provider Family Medicine; Visit Provider Family Medicine
DX: R74.8 Abnormal levels of other serum enzymes (principal); K80.20 Calculus of gallbladder without cholecystitis without obstruction
CPT/HCPCS: 76705

== ENCOUNTER → 2020-01-08 10:07 | Outpatient (CLI) | payer OTHER, MEDICAID, SELFPAY ==
--- NOTE | 2020-01-08 | DI.MG.S_ITS ---
BILATERAL DIGITAL SCREENING MAMMOGRAM 3D/2D WITH CAD: 01/08/2020 CLINICAL: Routine screening. Comparison is made to exams dated: 11/18/2018 mammogram - [facility] and 07/17/2008 mammogram - [facility]. There are scattered fibroglandular elements in both breasts. Current study was also evaluated with a Computer Aided Detection (CAD) system. There are benign diffuse calcifications in both breasts. No significant masses, calcifications, or other findings are seen in either breast. There has been no significant interval change. IMPRESSION: BENIGN There is no mammographic evidence of malignancy. A 1 year screening mammogram is recommended. This exam was interpreted at Station ID: [id number]. NOTE: For mammograms, a report in lay terms will be sent to the patient. Approximately 15% of breast malignancies will not be visualized mammographically. In the management of a palpable breast mass, a negative mammogram must not discourage biopsy of a clinically suspicious lesion. Electronically Signed By: Armando Reyes acr/arabella:01/08/2020 10:37:34 letter sent: Normal Exam ACR BI-RADS Category 2: Benign Finding(s) 3342F
== END ==
PROVIDERS: PCP Family Medicine; Referring Provider Family Medicine; Visit Provider Family Medicine
DX: Z12.31 Encounter for screening mammogram for malignant neoplasm of breast (principal)
CPT/HCPCS: 77063; 77067

== ENCOUNTER 2020-06-12 20:12 | Emergency (ER) | payer OTHER, MEDICAID, SELFPAY ==
[2020-06-12] VITALS (16 sets, daily range): BP systolic 93–120; BP diastolic 47–71; PULSE 54–111; RESP 16–24; TEMP 36.3; O2SAT 92–100
--- NOTE | 2020-06-12 20:40 | ED.GENADULT ---
HPI - General Adult General Chief complaint: Abdominal Pain Stated complaint: constipation Time Seen by Provider: 06/12/20 20:35 Source: patient Mode of arrival: Ambulatory Limitations: no limitations History of Present Illness HPI narrative: Patient is a 64-year-old female. She is insulin-dependent diabetic. She states that she is here for evaluation of abdominal distension and not having a bowel movement for 4 weeks. States she feels like she is constipated. She denies any urinary symptoms. States that her diet is normal. States that 5 weeks ago she was feeling fine and then 4 weeks ago started having problems with bowel movements. Things seem to have worsened over the past couple weeks. She denies alcohol use. Denies the use of drugs. Her abdomen is distended and states this is not new for her and has become worse and worse over the past several days/weeks. She has not had any vomiting. No fevers. No recent travel. Has not tried anything for symptoms prior to arrival. Related Data Home Medications Medication Instructions Recorded Confirmed aspirin #0 02/03/16 11/28/19 Previous Rx's Medication Instructions Recorded triamcinolone acetonide 0.025 % 1 applictn TOPICAL BID #1 tube 11/28/19 topical cream lisinopril 40 mg tablet 40 mg PO DAILY #90 tab 12/12/19 metformin 1,000 mg tablet 1,000 mg PO BID #60 tab 12/12/19 empagliflozin 25 mg tablet 25 mg PO QAM #30 tab 02/06/20 insulin glargine 100 unit/mL (3 55 unit SUBCUT BID #33 ml 02/06/20 mL) subcutaneous pen atorvastatin 20 mg tablet See Rx Instructions .ROUTE 05/14/20 .COMPLEX #90 tab gabapentin 300 mg capsule See Rx Instructions .ROUTE 05/14/20 .COMPLEX #90 cap fluoxetine 20 mg capsule See Rx Instructions .ROUTE 05/17/20 .COMPLEX #120 cap Free Style Angel [place] #1 ea 05/31/20 blood-glucose #1 ea 05/31/20 meter,continuous-transmitter blood-glucose sensor #3 ea 05/31/20 Allergies Allergy/AdvReac Type Severity Reaction Status Date / Time No Known Drug Allergies Allergy Verified 11/28/19 09:00 Review of Systems Constitutional Constitutional: Denies fatigue, Denies fever(s) and Denies headache(s) Eyes Eyes: Denies change in vision ENT Ears, Nose, Mouth, and Throat: Denies headache(s) Cardiovascular Cardiovascular: Denies chest pain and Denies dyspnea Respiratory Respiratory: Denies cough and Denies dyspnea Gastrointestinal Gastrointestinal: Reports abdominal pain, Reports bloating, Reports constipation, Denies nausea and Denies vomiting Genitourinary Genitourinary: Denies dysuria and Denies urinary urgency Genitourinary: Denies dysuria and Denies urinary urgency Musculoskeletal Musculoskeletal: Denies arthralgias and Denies myalgias Integumentary/Breasts Skin/Breast: Denies lesions and Denies rash Neurologic Neurologic: Denies behavioral changes and Denies headache(s) Psychiatric Psychiatric: Denies anxiety and Denies behavioral changes Endocrine Endocrine: Denies fatigue Hematologic/Lymphatic On Anticoagulants: No Allergic/Immunologic Allergic/Immunologic: Denies urticaria Patient History Medical History Arm pain Depression (~2004) Diabetes mellitus (~2012) Eczema (~2013) Foot pain (~2013) Glaucoma (~2012) Gout (~1987) Kidney disease (~2013) Liver disease (~2013) Shoulder pain (~2015) Skin problem (~2013) Vision disorder Family History Father Cancer Mother Age: 90 Hypertension High cholesterol Diabetes mellitus Grandfather No problems noted. Social History Smoking Status: Never smoker Smoking Status: Never smoker alcohol intake frequency: 0-2 drinks per day Substance Use Type: does not use Exam Initial Vital Signs Initial Vital Signs: Vital Signs Temperature 97.4 F L 06/12/20 20:16 Pulse Rate 103 H 06/12/20 20:16 Respiratory Rate 22 06/12/20 20:16 Blood Pressure 103/59 L 06/12/20 20:16 Pulse Oximetry 100 06/12/20 20:16 Const General: cooperative, No in distress and ill appearing Limitations: mental status not altered [facility] Head: normal to inspection and normocephalic Eyes General: appearance normal, both eyes and all related structures Chest Chest: No crepitus and No tenderness Resp Effort & Inspection: normal respiratory effort Auscultation: clear to auscultation bilaterally Cardio Rate: tachycardic Rhythm: regular rhythm GI Inspection: distended Palpation: firm, No mass and tender Back/Spine/Pelvis Back: No CVA tenderness Skin General: jaundice Rashes: no rashes Neuro General: patient alert, patient awake and patient oriented x3 Cognition: normal cognition Speech: speech normal Extrem General: normal to inspection, capillary refill normal and edema Psych Appearance: grossly normal and well kempt Scores GCS Keyes coma scale eye opening: Spontaneous Gurpreet coma scale verbal response: Orientated Gurpreet coma scale motor response: Obey commands Gurpreet coma scale total score: 15 Course Orders Ordered: ED Orders 06/12/20 21:44 Urinalysis and Microscopic Stat Urine Culture Stat 06/12/20 23:00 Type and Screen Stat Sodium Chloride (Normal Saline 0.9%) 1,000 mls @ 125 mls/hr IV CONT DYAN Last Admin: 06/13/20 02:59 Dose: 125 mls/hr Documented by: SNEHA Discontinued Medications Sodium Chloride (Normal Saline 0.9%) 1,000 mls @ 500 mls/hr IV BOLUS ONE Stop: 06/12/20 22:40 Last Infusion: 06/12/20 23:36 Dose: 0 mls/hr Documented by: Admin: 06/12/20 21:03 Dose: 500 mls/hr Documented by: DI Ceftriaxone Sodium/Dextrose (Rocephin) 1 gm in 50 mls @ 100 mls/hr IV NOW ONE Stop: 06/12/20 23:11 Last Infusion: 06/13/20 00:40 Dose: 0 mls/hr Documented by: Admin: 06/12/20 23:39 Dose: 100 mls/hr Documented by: BILLIE Morphine Sulfate (Morphine 4 Mg/Ml Inj) 4 mg IV NOW ONE Stop: 06/13/20 03:04 Last Admin: 06/13/20 03:07 Dose: 4 mg Documented by: SNEHA Vital Signs Vital signs: Vital Signs - 8 hr 06/12/20 22:45 06/12/20 22:46 06/12/20 23:00 Pulse Rate 104 H 104 H 104 H Respiratory Rate 17 Blood Pressure 102/58 L 106/61 Pulse Oximetry 94 94 93 06/12/20 23:15 06/12/20 23:30 06/12/20 23:45 Pulse Rate 106 H 107 H 111 H Respiratory Rate 24 21 23 Blood Pressure 120/61 119/64 113/68 Pulse Oximetry 96 94 92 06/13/20 00:00 06/13/20 00:15 06/13/20 00:30 Pulse Rate 108 H 107 H 106 H Respiratory Rate 18 15 17 Blood Pressure 117/62 111/58 L 111/58 L Pulse Oximetry 92 93 93 06/13/20 00:45 06/13/20 01:00 06/13/20 01:15 Pulse Rate 108 H 105 H 105 H Respiratory Rate 20 18 27 H Blood Pressure 109/56 L 111/61 119/64 Pulse Oximetry 96 92 94 06/13/20 01:30 06/13/20 01:45 06/13/20 02:00 Pulse Rate 105 H 108 H 107 H Respiratory Rate 30 H 37 H 22 Blood Pressure 116/59 L 113/63 112/60 Pulse Oximetry 93 92 95 06/13/20 02:15 06/13/20 02:30 06/13/20 02:45 Pulse Rate 108 H 108 H 108 H Respiratory Rate 23 21 19 Blood Pressure 110/59 L 108/59 L 106/57 L Pulse Oximetry 94 94 94 06/13/20 03:00 06/13/20 03:15 06/13/20 03:30 Pulse Rate 107 H 104 H 104 H Respiratory Rate 19 14 13 Blood Pressure 108/59 L 87/51 L 85/50 L Pulse Oximetry 96 92 91 06/13/20 03:45 06/13/20 04:00 06/13/20 04:15 Pulse Rate 104 H 104 H 105 H Respiratory Rate 20 21 16 Blood Pressure 93/54 L 97/53 L 106/58 L Pulse Oximetry 91 90 L 91 06/13/20 04:30 06/13/20 04:45 06/13/20 05:00 Pulse Rate 104 H 106 H 105 H Respiratory Rate 25 H 23 26 H Blood Pressure 108/62 110/57 L Pulse Oximetry 90 L 90 L 92 06/13/20 05:15 06/13/20 05:30 06/13/20 05:45 Pulse Rate 107 H 105 H 107 H Respiratory Rate 25 H 37 H 24 Blood Pressure 115/55 L Pulse Oximetry 92 92 92 Medical Decision Making Medical Records Medical records reviewed: Yes I reviewed the patient's medical records. Lab Data Lab results reviewed: Yes I reviewed the patient's lab results. Result diagrams: 06/12/20 21:31 06/12/20 21:31 Labs: Lab Results 06/12/20 06/12/20 06/12/20 Range/Units 20:49 21:31 21:31 WBC 12.2 H (4.5-11.0) X10^3/uL RBC 4.13 (4.0-5.2) X10^6/uL Hgb 12.3 (12.0-16.0) g/dL Hct 37.3 (36-46) % MCV 90.4 (80-100) fL MCH 29.8 (26-34) PG MCHC 32.9 (30-36) % RDW 15.0 H (11.6-14.8) % Plt Count 23 L* (150-400) X10^3/uL Neut % (Auto) Not Reportable Lymph % (Auto) Not Reportable [place] % (Auto) Not Reportable Eos % (Auto) Not Reportable Baso % (Auto) Not Reportable Lymph # (Auto) Not Reportable [place] # (Auto) Not Reportable Baso # (Auto) Not Reportable Total Counted 100 Seg Neutrophils % 60.0 (38-70) % Band Neutrophils % 12.0 H (3-7) % Lymphocytes % (Manual) 21.0 L (25-45) % Monocytes % (Manual) 2.0 (2-11) % Metamyelocytes % 1.0 H (-0) % Myelocytes % 4.0 H (-0) % Neutrophils # (Manual) 8784 H (0876-0631) /uL Nucleated RBCs 5 H ( - 0) #/Diff Platelet Estimate Decreased on smear RBC Morphology Normal morphology PT 12.5 (10.1-12.7) SECONDS INR 1.1 (0.9-1.3) APTT 34 (26.4-36.2) SECONDS Sodium (137-145) mmol/L Potassium (3.4-5.1) mmol/L Chloride (98-107) mmol/L Carbon Dioxide (22-32) mmol/L BUN (7-17) mg/dL Creatinine (0.52-1.04) mg/dL Estimated GFR (>60) mL/min BUN/Creatinine Ratio (6-22) Glucose (80-110) mg/dL Lactate (0.7-2.1) mmol/L Calcium (8.4-10.2) mg/dL Total Bilirubin (0.2-1.3) mg/dL AST (14-36) IU/L ALT (<35) IU/L Alkaline Phosphatase (38-126) U/L Ammonia (9-30) umol/L Total Creatine Kinase (30-135) U/L CK-MB (CK-2) (<2.37) ng/mL CK-MB (CK-2) Rel Index (1.5-5.0) % Troponin I (0.01-0.034) ng/mL Total Protein (6.3-8.2) g/dL Albumin (3.5-5.0) g/dL Globulin (1.7-4.1) g/dL Albumin/Globulin Ratio (1.0-2.8) Lipase (23-300) U/L Procalcitonin (<0.5) ng/mL Urine Color Urine Appearance Urine pH (4.5-8.0) Ur Specific [place] (1.000-1.035) Urine Protein (Negative) Urine Glucose (UA) (Negative) g/dL Urine Ketones (NEGATIVE) Urine Occult Blood (Negative) Urine Nitrate (Negative) Urine Bilirubin (NEGATIVE) Urine Urobilinogen (0.2) E.U./dL Ur Leukocyte Esterase (NEGATIVE) Urine RBC (0-5/HPF) Urine WBC (0-5/HPF) Amorphous Sediment Urine Bacteria (None) WBC Casts (None) Ur Culture Indicated? Acetaminophen (10-30) ug/mL Ethyl Alcohol ( - 10) mg/dL SARS-CoV-2 (PCR) Negative (Negative) Blood Type Antibody Screen 06/12/20 06/12/20 06/12/20 Range/Units 21:31 21:31 21:31 WBC (4.5-11.0) X10^3/uL RBC (4.0-5.2) X10^6/uL Hgb (12.0-16.0) g/dL Hct (36-46) % MCV (80-100) fL MCH (26-34) PG MCHC (30-36) % RDW (11.6-14.8) % Plt Count (150-400) X10^3/uL Neut % (Auto) Lymph % (Auto) [place] % (Auto) Eos % (Auto) Baso % (Auto) Lymph # (Auto) [place] # (Auto) Baso # (Auto) Total Counted Seg Neutrophils % (38-70) % Band Neutrophils % (3-7) % Lymphocytes % (Manual) (25-45) % Monocytes % (Manual) (2-11) % Metamyelocytes % (-0) % Myelocytes % (-0) % Neutrophils # (Manual) (6742-8817) /uL Nucleated RBCs ( - 0) #/Diff Platelet Estimate RBC Morphology PT (10.1-12.7) SECONDS INR (0.9-1.3) APTT (26.4-36.2) SECONDS Sodium 131 L (137-145) mmol/L Potassium 4.6 (3.4-5.1) mmol/L Chloride 97 L (98-107) mmol/L Carbon Dioxide 25 (22-32) mmol/L BUN 49 H (7-17) mg/dL Creatinine 1.20 H (0.52-1.04) mg/dL Estimated GFR 45.2 L (>60) mL/min BUN/Creatinine Ratio 40.8 H (6-22) Glucose 108 (80-110) mg/dL Lactate 2.8 H (0.7-2.1) mmol/L Calcium 10.1 (8.4-10.2) mg/dL Total Bilirubin 1.3 (0.2-1.3) mg/dL AST 103 H (14-36) IU/L ALT 28 (<35) IU/L Alkaline Phosphatase 497 H (38-126) U/L Ammonia < 9 L (9-30) umol/L Total Creatine Kinase (30-135) U/L CK-MB (CK-2) (<2.37) ng/mL CK-MB (CK-2) Rel Index (1.5-5.0) % Troponin I (0.01-0.034) ng/mL Total Protein 6.8 (6.3-8.2) g/dL Albumin 3.0 L (3.5-5.0) g/dL Globulin 3.8 (1.7-4.1) g/dL Albumin/Globulin Ratio 0.8 L (1.0-2.8) Lipase 49 (23-300) U/L Procalcitonin (<0.5) ng/mL Urine Color Urine Appearance Urine pH (4.5-8.0) Ur Specific [place] (1.000-1.035) Urine Protein (Negative) Urine Glucose (UA) (Negative) g/dL Urine Ketones (NEGATIVE) Urine Occult Blood (Negative) Urine Nitrate (Negative) Urine Bilirubin (NEGATIVE) Urine Urobilinogen (0.2) E.U./dL Ur Leukocyte Esterase (NEGATIVE) Urine RBC (0-5/HPF) Urine WBC (0-5/HPF) Amorphous Sediment Urine Bacteria (None) WBC Casts (None) Ur Culture Indicated? Acetaminophen (10-30) ug/mL Ethyl Alcohol ( - 10) mg/dL SARS-CoV-2 (PCR) (Negative) Blood Type Antibody Screen 06/12/20 06/12/20 06/12/20 Range/Units 21:31 21:31 21:44 WBC (4.5-11.0) X10^3/uL RBC (4.0-5.2) X10^6/uL Hgb (12.0-16.0) g/dL Hct (36-46) % MCV (80-100) fL MCH (26-34) PG MCHC (30-36) % RDW (11.6-14.8) % Plt Count (150-400) X10^3/uL Neut % (Auto) Lymph % (Auto) [place] % (Auto) Eos % (Auto) Baso % (Auto) Lymph # (Auto) [place] # (Auto) Baso # (Auto) Total Counted Seg Neutrophils % (38-70) % Band Neutrophils % (3-7) % Lymphocytes % (Manual) (25-45) % Monocytes % (Manual) (2-11) % Metamyelocytes % (-0) % Myelocytes % (-0) % Neutrophils # (Manual) (2859-3432) /uL Nucleated RBCs ( - 0) #/Diff Platelet Estimate RBC Morphology PT (10.1-12.7) SECONDS INR (0.9-1.3) APTT (26.4-36.2) SECONDS Sodium (137-145) mmol/L Potassium (3.4-5.1) mmol/L Chloride (98-107) mmol/L Carbon Dioxide (22-32) mmol/L BUN (7-17) mg/dL Creatinine (0.52-1.04) mg/dL Estimated GFR (>60) mL/min BUN/Creatinine Ratio (6-22) Glucose (80-110) mg/dL Lactate (0.7-2.1) mmol/L Calcium (8.4-10.2) mg/dL Total Bilirubin (0.2-1.3) mg/dL AST (14-36) IU/L ALT (<35) IU/L Alkaline Phosphatase (38-126) U/L Ammonia (9-30) umol/L Total Creatine Kinase 204 H (30-135) U/L CK-MB (CK-2) < 0.22 (<2.37) ng/mL CK-MB (CK-2) Rel Index 0.1 L (1.5-5.0) % Troponin I < 0.012 (0.01-0.034) ng/mL Total Protein (6.3-8.2) g/dL Albumin (3.5-5.0) g/dL Globulin (1.7-4.1) g/dL Albumin/Globulin Ratio (1.0-2.8) Lipase (23-300) U/L Procalcitonin 2.75 H (<0.5) ng/mL Urine Color Yellow Urine Appearance Slightly cloudy Urine pH 5.0 (4.5-8.0) Ur Specific [place] 1.020 (1.000-1.035) Urine Protein Trace H (Negative) Urine Glucose (UA) 1+ H (Negative) g/dL Urine Ketones Negative (NEGATIVE) Urine Occult Blood Negative (Negative) Urine Nitrate Positive H (Negative) Urine Bilirubin Negative (NEGATIVE) Urine Urobilinogen 1.0 (0.2) E.U./dL Ur Leukocyte Esterase Trace H (NEGATIVE) Urine RBC 0-1/hpf (0-5/HPF) Urine WBC 1-5/hpf (0-5/HPF) Amorphous Sediment 1+ Urine Bacteria Moderate (10-30) H (None) WBC Casts 0-1/lpf (None) Ur Culture Indicated? Specimen cultured Acetaminophen < 10 L (10-30) ug/mL Ethyl Alcohol < 10 ( - 10) mg/dL SARS-CoV-2 (PCR) (Negative) Blood Type Antibody Screen 06/12/20 06/12/20 Range/Units 23:00 23:00 WBC (4.5-11.0) X10^3/uL RBC (4.0-5.2) X10^6/uL Hgb (12.0-16.0) g/dL Hct (36-46) % MCV (80-100) fL MCH (26-34) PG MCHC (30-36) % RDW (11.6-14.8) % Plt Count (150-400) X10^3/uL Neut % (Auto) Lymph % (Auto) [place] % (Auto) Eos % (Auto) Baso % (Auto) Lymph # (Auto) [place] # (Auto) Baso # (Auto) Total Counted Seg Neutrophils % (38-70) % Band Neutrophils % (3-7) % Lymphocytes % (Manual) (25-45) % Monocytes % (Manual) (2-11) % Metamyelocytes % (-0) % Myelocytes % (-0) % Neutrophils # (Manual) (9196-0533) /uL Nucleated RBCs ( - 0) #/Diff Platelet Estimate RBC Morphology PT (10.1-12.7) SECONDS INR (0.9-1.3) APTT (26.4-36.2) SECONDS Sodium (137-145) mmol/L Potassium (3.4-5.1) mmol/L Chloride (98-107) mmol/L Carbon Dioxide (22-32) mmol/L BUN (7-17) mg/dL Creatinine (0.52-1.04) mg/dL Estimated GFR (>60) mL/min BUN/Creatinine Ratio (6-22) Glucose (80-110) mg/dL Lactate 2.2 H (0.7-2.1) mmol/L Calcium (8.4-10.2) mg/dL Total Bilirubin (0.2-1.3) mg/dL AST (14-36) IU/L ALT (<35) IU/L Alkaline Phosphatase (38-126) U/L Ammonia (9-30) umol/L Total Creatine Kinase (30-135) U/L CK-MB (CK-2) (<2.37) ng/mL CK-MB (CK-2) Rel Index (1.5-5.0) % Troponin I (0.01-0.034) ng/mL Total Protein (6.3-8.2) g/dL Albumin (3.5-5.0) g/dL Globulin (1.7-4.1) g/dL Albumin/Globulin Ratio (1.0-2.8) Lipase (23-300) U/L Procalcitonin (<0.5) ng/mL Urine Color Urine Appearance Urine pH (4.5-8.0) Ur Specific [place] (1.000-1.035) Urine Protein (Negative) Urine Glucose (UA) (Negative) g/dL Urine Ketones (NEGATIVE) Urine Occult Blood (Negative) Urine Nitrate (Negative) Urine Bilirubin (NEGATIVE) Urine Urobilinogen (0.2) E.U./dL Ur Leukocyte Esterase (NEGATIVE) Urine RBC (0-5/HPF) Urine WBC (0-5/HPF) Amorphous Sediment Urine Bacteria (None) WBC Casts (None) Ur Culture Indicated? Acetaminophen (10-30) ug/mL Ethyl Alcohol ( - 10) mg/dL SARS-CoV-2 (PCR) (Negative) Blood Type A Positive Antibody Screen Negative Point of Care Testing Glucose POC 95 Point of care testing: Point of Care Testing Glucose POC [address] scan - abdomen/pelvis: Radiologist's Impression: Markedly enlarged and heterogeneous uterus containing some calcified fibroids. Neoplastic process is suspected, as there is significant lymphadenopathy in the retroperitoneum/pelvis, in addition to a small amount of ascites in the abdomen/pelvis. There is also mesenteric haziness adjacent to the uterus, with an associated 1.7 cm soft tissue nodule, ECG Data Attestation: I personally reviewed and interpreted this ECG as follows: Prior ECG tracings: not available for review Interpretation: Sinus tachycardia Ventricular rate of 105 Normal axis Normal QRS Normal QTC Nonspecific ST T wave changes MDM Narrative Medical decision making narrative: Upon arrival patient is ill-appearing. She does give the appearance of someone with chronic liver disease however her LFTs and bilirubin today are relatively unremarkable. She does have a markedly distended abdomen. Initially thought this is going to be ascites however after the CT scan returned it does appear that she has a very large uterus that is concerning for malignancy. She also has retroperitoneal and pelvic lymph nodes. She is thrombocytopenic. She has no signs of any active bleeding. Was tachycardic upon arrival. Was also clinically dehydrated. She had dry mucous membranes. Has been given fluids since being here in the ER. She has never had a systolic blood pressure less than 90. Her lactate is improved with fluids as well. She has a slight leukocytosis. Her urinalysis is positive for nitrites. She was given Rocephin for presumed urinary tract infection. I discussed the case with Dr. Brown with OBGYN at this facility who recommended given the findings on the CT scan in her other comorbidities she be transferred to a larger facility. I then discussed the case with hospitalist at [facility] in [place] who asked that I talk with their oil recovery unit operator providers. I then talked with their OBGYN who stated that they do not provide Software Applications Specialist/onc services. She recommended that I talk with either [facility] or the [facility]. We contacted [facility] and they have no bed availability. I then discussed the case with Dr. Junior at the [facility] oil recovery unit operator Oncology service who accepts the patient in transport. Patient is stable for transport. I did discuss with the patient the findings of her workup here in the ER the need for transport. She expressed understanding of this. Discharge Plan Departure Patient Disposition: [facility] Clinical Impression: Thrombocytopenia, Urinary tract infection, Mass of uterus, Acute kidney injury Prescriptions: No Action triamcinolone acetonide 0.025 % cream 1 applictn Topical BID Qty: 1 RF: 0 aspirin 81 MG tablet,delayed release (DR/EC) Qty: 0 RF: 0 metformin 1,000 mg tablet 1,000 mg PO BID Qty: 60 RF: 2 lisinopril 40 mg tablet 40 mg PO DAILY Qty: 90 RF: 3 insulin glargine 100 unit/mL (3 mL) insulin pen 55 unit SUBCUT BID Qty: 33 RF: 1 empagliflozin 25 mg tablet 25 mg PO QAM Qty: 30 RF: 6 gabapentin 300 mg capsule See Rx Instructions .ROUTE .COMPLEX Qty: 90 RF: 1 atorvastatin 20 mg tablet See Rx Instructions .ROUTE .COMPLEX Qty: 90 RF: 1 fluoxetine 20 mg capsule See Rx Instructions .ROUTE .COMPLEX Qty: 120 RF: 0 (DME) Free Style Angel [place] See Rx Instructions .Route .MEDSUPPLY Qty: 1 RF: 0 (DME) Freestyle Navigator Gluc Sens Device See Rx Instructions .ROUTE .MEDSUPPLY Qty: 3 RF: 0 (DME) blood-glu meter,cont-transmit Misc See Rx Instructions .ROUTE .MEDSUPPLY Qty: 1 RF: 0 Referrals: Sarah Etienne MD [Primary Care Provider] -
--- NOTE | 2020-06-12 20:41 | DI.CT.S_ITS ---
PROCEDURE: CT ABDOMEN PELVIS W CON INDICATIONS: Abdominal distension TECHNIQUE: After the administration of intravenous contrast, 5 mm thick sections acquired from the diaphragm to the symphysis. 5 mm coronal and sagittal reformats were acquired. For radiation dose reduction, the following was used: automated exposure control, adjustment of mA and/or kV according to patient size. COMPARISON: [facility], , US ABDOMEN LIMITED, 12/05/2019, 15:14. FINDINGS: Image quality: Excellent. ABDOMEN: Lung bases: Bibasilar atelectasis. Heart size is normal. Solid organs: Liver demonstrates nodular contour consistent with cirrhosis. There is a small amount of ascites around the liver. Liver is normal in size and enhancement. Gallbladder contains multiple calcified gallstones. Biliary system is non dilated. Pancreas enhances normally. Spleen is at upper limits of normal in size. No adrenal nodules. Kidneys demonstrate normal size and enhancement, without hydronephrosis. Peritoneum and bowel: Bowel loops demonstrate normal wall thickness and caliber. 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 No free air. There is a small amount of ascites. Nodes and vessels: There is retroperitoneal lymphadenopathy. For example, a 4.6 x 4.7 cm conglomerate arnav mass in the left para-aortic area. There is a 2.7 x 2.5 cm aortocaval lymph node is present. Bilateral common iliac lymphadenopathy. Enlarged left common iliac lymph nodes measure up to 2.0 x 3.5 cm. There is a 2.5 x 3.3 cm right common iliac lymph node. Enlarged left internal and external iliac lymph nodes are also present. Aorta is normal in size. There is compression of IVC by enlarged lymph nodes. Miscellaneous: No ventral hernias. PELVIS: Genitourinary: There is a large pelvic mass measuring 12.9 cm AP, 22.8 cm transverse and 22.0 cm oblique cephalocaudal. The mass demonstrates heterogeneous enhancement and foci of calcifications. The mass is most likely arising from the uterus. Ovaries are not visualized. Bladder is decompressed with a Trammell catheter. There is mass effect by the mass to the urinary bladder. Miscellaneous: No inguinal hernias or adenopathy. Bones: No suspicious bony lesions. No vertebral body compression fractures. Severe degenerative changes in lumbar spine. IMPRESSION: 1. A UH pelvic mass most likely arising from the uterus. Given its size and heterogeneous appearance, a malignant neoplasm such as a uterine sarcoma is suspected. If clinically indicated, percutaneous biopsy under CT or ultrasound guidance is feasible. 2. Extensive and iliac lymphadenopathy consistent with metastases. 3. Omental caking and a omental nodule consistent with metastasis. 4. Cirrhotic liver. 5. Small amount of ascites. 6. Cholelithiasis. No significant discrepancy with the service inspector radiology preliminary report. Dictated by: Clint Underwood M.D. on 06/13/2020 at 7:50 Approved by: Clint Underwood M.D. on 06/13/2020 at 8:16
[2020-06-12] MEDS: SODIUM CHLORIDE 0.9% 1,000 ML 500 ML IV (21:03)
[2020-06-12 21:48] LABS: INR 1.1 (0.9-1.3); Prothrombin Time 12.5 SECONDS (10.1-12.7)
--- NOTE | 2020-06-12 21:48 | PC.NURSE ---
difficulty placing catheter w/ standard 16 fr catheter. Coude 16 fr placed w/o difficulty.
[2020-06-12 21:50] LABS: Hematocrit 37.3 % (36-46); Hemoglobin 12.3 g/dL (12.0-16.0); Mean Corpuscular HGB Conc 32.9 % (30-36); Mean Corpuscular Hemoglobin 29.8 PG (26-34); Mean Corpuscular Volume 90.4 fL (80-100); PTT Partial Thromboplastin Tim 34 SECONDS (26.4-36.2); Red Blood Cell Count 4.13 X10^6/uL (4.0-5.2); White Blood Cell Count 12.2 X10^3/uL (4.5-11.0)
[2020-06-12 21:51] LABS: Add Manual Diff / Slide Review YES
[2020-06-12 21:54] LABS: Acetaminophen < 10 ug/mL (10-30); Ammonia (NH3) < 9 umol/L (9-30); Ethanol (ETOH) < 10 mg/dL; Lactate (Lactic Acid) 2.8 mmol/L (0.7-2.1)
[2020-06-12 21:56] LABS: Alanine Aminotransferase 28 IU/L (<35); Albumin Globulin Ratio 0.8 (1.0-2.8); Alkaline Phosphatase 497 U/L (38-126); Aspartate Aminotransferase 103 IU/L (14-36); BUN Creatinine Ratio 40.8 (6-22); Bilirubin Total 1.3 mg/dL (0.2-1.3); Blood Urea Nitrogen 49 mg/dL (7-17); Calcium 10.1 mg/dL (8.4-10.2); Carbon Dioxide 25 mmol/L (22-32); Chloride 97 mmol/L (98-107); Estimated Glomerular Filt Rate 45.2 mL/min (>60); Globulin 3.8 g/dL (1.7-4.1); Glucose 108 mg/dL (80-110); HEMOLYSIS < 15 (0-50); Lipase 49 U/L (23-300); Potassium 4.6 mmol/L (3.4-5.1); Sodium 131 mmol/L (137-145); Total Protein 6.8 g/dL (6.3-8.2)
[2020-06-12 21:58] LABS: Bilirubin Urine UA NEGATIVE (NEGATIVE); Color Urine UA YELLOW; Glucose Urine UA 1+ g/dL (Negative); Ketones Urine UA NEGATIVE (NEGATIVE); Leukocyte Esterase Urine UA TRACE (NEGATIVE); Nitrite Urine UA POSITIVE (Negative); Occult Blood Urine UA NEGATIVE (Negative); Protein Urine UA TRACE (Negative)
[2020-06-12 22:03] LABS: COVID19 - ADMIT (NP swab/PCR) Negative (Negative)
[2020-06-12 22:05] LABS: Appearance Urine UA Slightly Cloudy
[2020-06-12 22:09] LABS: RBC Urine 0-1/HPF (0-5/HPF); WBC Urine 1-5/HPF (0-5/HPF)
[2020-06-12 22:10] LABS: Amorphous Sediment Urine 1+; Bacteria Urine Moderate (10-30); Culture Indicated Urine Specimen Cultured; White Blood Cell Casts Urine 0-1/LPF
[2020-06-12 22:22] LABS: Neutrophils Absolute Manual 8784 /uL (3000-5900); Nucleated Red Blood Cells 5 #/Diff; Total Cells Counted 100
[2020-06-12 22:23] LABS: Platelet Estimate Decreased on smear; RBC Morphology Normal Morphology
[2020-06-12 22:24] LABS: Platelet Count 23 X10^3/uL (150-400)
[2020-06-12 22:48] LABS: Creatine Kinase 204 U/L (30-135)
[2020-06-12 23:01] LABS: Troponin I < 0.012 ng/mL (0.01-0.034)
[2020-06-12 23:06] LABS: CKMB % Relative Index 0.1 % (1.5-5.0); Creatine Kinase MB < 0.22 ng/mL (<2.37); Procalcitonin 2.75 ng/mL (<0.5)
[2020-06-12 23:38] LABS: Reflexed Lactate in 2 Hours Y
[2020-06-12] MEDS: CEFTRIAXONE 1 GM/50 ML FROZ.PIGGY IV (23:39)
[2020-06-12 23:53] LABS: Lactate 2HR (Lactic Acid Rflx) 2.2 mmol/L (0.7-2.1)
[2020-06-13] VITALS (36 sets, daily range): BP systolic 85–119; BP diastolic 50–64; PULSE 104–113; RESP 13–37; O2SAT 90–97
[2020-06-13] MEDS: SODIUM CHLORIDE 0.9% 1,000 ML 125 ML IV (02:59)
[2020-06-13] MEDS: MORPHINE 4 MG/ML INJ IV (03:07)
== END 2020-06-13 09:11 | disposition short-term general hospital (02) ==
PROVIDERS: Emergency Provider Emergency Medicine; PCP Family Medicine
DX: D69.6 Thrombocytopenia, unspecified (principal); N39.0 Urinary tract infection, site not specified; N85.8 Other specified noninflammatory disorders of uterus; N17.9 Acute kidney failure, unspecified; Z20.822 Contact with and (suspected) exposure to COVID-19
CPT/HCPCS: 36415; 51701; 74177; 80053; 80320; 80329; 81001; 82140; 82550; 82553; 82962; 83605; 83690; 84145; 84484; 85007; 85025; 85610; 85730; 86850; 86900; 86901; 87040; 87077; 87086; 87186; 87635; 93005; 93010; 96361; 96365; 96375; 99285; C9803; G0480; J2270; Q9967